=== PATIENT | male | born 1975 | race Caucasian/White ===

== ENCOUNTER 2018-03-30 10:31 | Emergency (ER) | payer OTHER ==
--- NOTE | 2018-03-30 11:10 | EDPHY ---
H & P Time Seen by Provider: 03/30/18 10:46 HPI/ROS: Chief complaint. Abdominal pain HPI. Patient is 42-year-old male with 3 day history of mid abdominal pain. It is crampy and comes in waves. He has had previous symptoms that are similar. Decreased oral intake. He has had vomiting and diarrhea. Decreased urine output. Possibly fever and chills. No chest pain or shortness of breath. Pain does not radiate to his back. No previous abdominal surgery. He also has pain in the right lower quadrant with movement. ROS 10 systems were reviewed and negative with the exception of the elements mentioned in the history of present illness Past Medical/Surgical History: L4-5 herniated disc Social History: Divorce, daily smoker, no alcohol Smoking Status: Current every day smoker Physical Exam: General Appearance: Alert well-developed male mild distress vital signs significant for heart rate 114 Eyes: Pupils equal and round no pallor or injection. ENT, Mouth: Mucous membranes are moist. Respiratory: There are no retractions, lungs are clear to auscultation. Cardiovascular: Regular rate and rhythm. Gastrointestinal: Abdomen is soft with mid abdominal tenderness. He also has tenderness in the right lower quadrant. No masses. Normal bowel sounds Neurological: Awake and alert, sensory and motor exams grossly normal. Skin: Warm and dry, no rashes. Musculoskeletal: Neck is supple nontender. Extremities symmetrical, full range of motion. Psychiatric: Patient is oriented X 3, there is no agitation. Constitutional: Initial Vital Signs Temperature (C) 36.7 C 03/30/18 10:43 Heart Rate 114 H 03/30/18 10:43 Respiratory Rate 18 03/30/18 10:43 Blood Pressure 139/98 H 03/30/18 10:43 O2 Sat (%) 97 03/30/18 10:43 O2 Delivery Mode Room Air Allergies/Adverse Reactions: No Known Allergies Allergy (Verified 03/30/18 10:42) Home Medications: Medication Instructions Recorded Ciprofloxacin [Cipro] 500 mg PO BID #20 tab 03/30/18 Hydrocodone/APAP 5/325 [[place] 1 each PO Q4-6PRN PRN #10 tab 03/30/18 5/325 (*)] Ondansetron Odt [Zofran Odt] 4 mg PO Q4PRN PRN #7 tab 03/30/18 Medical Decision Making - Diagnostics Imaging Results: Imaging Impressions Abdomen CT 03/30/18 11:21 Impression: 1. Moderate thickening of distal ileum for length of about 20 cm with surrounding inflammation in the mesentery and small amount of reactive ascites. Findings are suspicious for Crohn's disease/enteritis 2. No CT evidence of appendicitis, abscess or bowel obstruction. Findings discussed with Dave Yates M.D. at 12:29 hour, 03/30/2018. Procedures: IV normal saline with initial target 2 L. Zofran for nausea ED Course/Re-evaluation: On re-evaluation patient is stable. Patient and I discussed imaging and lab results. We discussed treatment plan including criteria for return and importance of follow-up and further evaluation. He expresses understanding and agreement I consulted discussed case with Dr. Hudson on for GI. He recommends stool pathogen panel. He recommends Cipro twice daily for 10 days. He will see the patient in follow-up. Differential Diagnosis: I considered diverticulitis, appendicitis. It appears the patient has distal ileitis. Differential includes includes Crohn's disease or bacterial etiology. - Data Points Laboratory Results: Laboratory Results 03/30/18 11:25 03/30/18 11:25 03/30/18 03/30/18 03/30/18 12:57 11:25 11:25 WBC 12.90 10^3/uL H 10^3/uL (3.80-9.50) RBC 4.83 10^6/uL 10^6/uL (4.40-6.38) Hgb 16.5 g/dL g/dL (13.7-17.5) Hct 46.9 % % (40.0-51.0) MCV 97.1 fL fL (81.5-99.8) MCH 34.2 pg H pg (27.9-34.1) MCHC 35.2 g/dL g/dL (32.4-36.7) RDW 11.9 % % (11.5-15.2) Plt Count 256 10^3/uL 10^3/uL (150-400) MPV 9.8 fL fL (8.7-11.7) Neut % (Auto) 79.7 % H % (39.3-74.2) Lymph % (Auto) 11.6 % L % (15.0-45.0) [place] % (Auto) 7.1 % % (4.5-13.0) Eos % (Auto) 0.9 % % (0.6-7.6) Baso % (Auto) 0.3 % % (0.3-1.7) Nucleat RBC Rel Count 0.0 % % (0.0-0.2) Absolute Neuts (auto) 10.29 10^3/uL H 10^3/uL (1.70-6.50) Absolute Lymphs (auto) 1.50 10^3/uL 10^3/uL (1.00-3.00) Absolute Monos (auto) 0.91 10^3/uL H 10^3/uL (0.30-0.80) Absolute Eos (auto) 0.11 10^3/uL 10^3/uL (0.03-0.40) Absolute Basos (auto) 0.04 10^3/uL 10^3/uL (0.02-0.10) Absolute Nucleated RBC 0.00 10^3/uL 10^3/uL (0-0.01) Immature Gran % 0.4 % % (0.0-1.1) Immature Gran # 0.05 10^3/uL 10^3/uL (0.00-0.10) Sodium 136 mEq/L mEq/L (135-145) Potassium 4.0 mEq/L mEq/L (3.5-5.2) Chloride 107 mEq/L mEq/L (97-110) Carbon Dioxide 21 mEq/l L mEq/l (22-31) Anion Gap 8 mEq/L mEq/L (6-14) BUN 12 mg/dL mg/dL (7-23) Creatinine 0.9 mg/dL mg/dL (0.7-1.3) Estimated GFR > 60 Glucose 97 mg/dL mg/dL (70-100) Calcium 9.4 mg/dL mg/dL (8.5-10.4) Total Bilirubin 1.5 mg/dL H mg/dL (0.1-1.4) Conjugated Bilirubin 0.3 mg/dL mg/dL (0.0-0.5) Unconjugated Bilirubin 1.2 mg/dL H mg/dL (0.0-1.1) AST 26 IU/L IU/L (17-59) ALT 43 IU/L IU/L (21-72) Alkaline Phosphatase 59 IU/L IU/L (38-126) Total Protein 6.9 g/dL g/dL (6.3-8.2) Albumin 4.0 g/dL g/dL (3.5-5.0) Lipase 84 IU/L IU/L (23-300) Urine Color Pending Urine Appearance Pending Urine pH Pending Ur Specific [place] Pending Urine Protein Pending Urine Ketones Pending Urine Blood Pending Urine Nitrate Pending Urine Bilirubin Pending Urine Urobilinogen Pending Ur Leukocyte Esterase Pending Urine RBC Pending Urine WBC Pending Ur Epithelial Cells Pending Urine Glucose Pending Medications Given: Discontinued Medications Sodium Chloride (Ns) 1,000 mls @ 0 mls/hr IV EDNOW ONE; Wide Open PRN Reason: Protocol Stop: 03/30/18 11:21 Last Admin: 03/30/18 11:26 Dose: 1,000 mls Sodium Chloride (Ns) 1,000 mls @ 0 mls/hr IV EDNOW ONE; Wide Open PRN Reason: Protocol Stop: 03/30/18 11:21 Last Admin: 03/30/18 11:28 Dose: 1,000 mls Ondansetron HCl (Zofran) 4 mg IVP EDNOW ONE Stop: 03/30/18 11:21 Last Admin: 03/30/18 11:49 Dose: Not Given Departure - Departure Disposition: Home, Routine, Self-Care Clinical Impression: Abdominal pain Qualifiers: Abdominal location: lower abdomen, unspecified Qualified Code(s): R10.30 - Lower abdominal pain, unspecified Diarrhea Qualifiers: Diarrhea type: unspecified type Qualified Code(s): R19.7 - Diarrhea, unspecified Condition: Good Instructions: Acute Abdominal Pain (ED) Additional Instructions: Frequent, small sips fluids well nauseated. Gradual diet advancement. Zofran if needed for nausea and vomiting. Hydrocodone for pain if necessary Return with stool sample Cipro twice daily for infectious cause of intestinal inflammation. Return for worsening symptoms. I discussed the case with Dr. Hudson who is a scientific specialist. He would like to see you in the office for follow-up evaluation. Call today to schedule follow-up appointment Referrals: NONE *PRIMARY CARE P,. [Primary Care Provider] - As per Instructions Wellington Hudson MD [Medical Doctor] - 2-3 days, call for appt. Prescriptions: Ciprofloxacin [Cipro] 500 mg PO BID #20 tab Hydrocodone/APAP 5/325 [[place] 5/325 (*)] 1 each PO Q4-6PRN PRN #10 tab PRN Reason: Pain, Moderate Ondansetron Odt [Zofran Odt] 4 mg PO Q4PRN PRN #7 tab PRN Reason: Nausea/Vomiting, Use 1st
[2018-03-30] MEDS ORDERED: ONDANSETRON 4 MG/2 ML VIAL IVP ONE (11:20)
[2018-03-30] MEDS ORDERED: NS 1,000 ML IV ONE ×2 (11:20)
[2018-03-30 11:35] LABS: PLATELET COUNT 256 10^3/uL (150-400)
[2018-03-30] MEDS ORDERED: IOHEXOL 350mgI/ML (OMNIPAQUE) 150 ML BTL IV ONE (12:11)
[2018-03-30 14:09] VITALS: BP 145/93
== END 2018-03-30 14:07 | disposition home or self-care (01) ==
DX: R10.9 Unspecified abdominal pain (principal); R19.7 Diarrhea, unspecified; E86.9 Volume depletion, unspecified
CPT/HCPCS: Q9967